=== PATIENT | male | born 1930 | race Caucasian/White ===

== ENCOUNTER 2017-10-15 22:00 | Inpatient (IN) | payer MEDICARE, BC ==
[~2017-10-15] VITALS: Ht 172.7 cm; Wt 76.8 kg
[2017-10-15] MEDS ORDERED: ALBU1.25 NEB (22:11)
[2017-10-15] MEDS ORDERED: CARV12.52 PO (22:11)
[2017-10-15 22:36] LABS: BASOPHILS # (AUTO) 0.02 x10^3/uL (0-0.1); BASOPHILS % (AUTO) 0 % (0-1); EOSINOPHILS # (AUTO) 0.25 x10^3/uL (0-0.4); EOSINOPHILS % (AUTO) 3 % (1-7); LYMPHOCYTES # (AUTO) 1.16 x10^3/uL (1-3.4); LYMPHOCYTES % (AUTO) 15 % (22-44); MD NO; MEAN CORPUSCULAR HEMOGLOBIN 30.9 pg (27.5-34.5); MEAN CORPUSCULAR HGB CONC 33.5 g/dL (33.2-36.2); MEAN CORPUSCULAR VOLUME 92.2 fL (81-97); MEAN PLATELET VOLUME 8.8 fL (7.4-10.4); MONOCYTES # (AUTO) 1.01 x10^3/uL (0.2-0.8); MONOCYTES % (AUTO) 13 % (2-9); NEUTROPHILS # (AUTO) 5.52 x10^3/uL (1.8-6.8); NEUTROPHILS % (AUTO) 69 % (42-75); PLATELET COUNT 146 x10^3/uL (130-400); RED BLOOD COUNT 3.86 x10^6/uL (4.38-5.82); RED CELL DISTRIBUTION WIDTH 14.3 % (9.4-14.8)
[2017-10-15 22:47] LABS: ALANINE AMINOTRANSFERASE 26 U/L (12-78); ALBUMIN 3.2 g/dL (3.4-5.0); ANION GAP 5 mmol/L (5-15); CALCIUM 8.2 mg/dL (8.5-10.1); CHLORIDE 111 mmol/L (98-107); CREATININE 1.42 mg/dL (0.7-1.3)
[2017-10-15 22:52] LABS: ALKALINE PHOSPHATASE 20 U/L (45-117); BILIRUBIN,TOTAL 0.3 mg/dL (0.2-1.0); TOTAL PROTEIN 6.2 g/dL (6.4-8.2); TROPONIN I < 0.015 ng/mL (0.000-0.045)
[2017-10-15] MEDS ORDERED: PRAV10TA2 PO (23:11)
[2017-10-15] MEDS ORDERED: TIOT18CA INH (23:11)
[2017-10-15] MEDS ORDERED: CYAN250013 PO (23:12)
[2017-10-15] MEDS ORDERED: ASCO10004 PO (23:12)
[2017-10-15] MEDS ORDERED: ALBUTEROL SULFATE 2.5 MG/3 ML NPPB PRN (23:45)
[2017-10-15] MEDS ORDERED: SODIUM CHLORIDE 0.9% 1,000 ML IV ONE (23:49)
[2017-10-16] MEDS ORDERED: MAALOX/HYOSCYAMINE/LIDOCAINE 45 ML BTL ONE (00:02)
[2017-10-16 00:28] VITALS: BP 149/82
[2017-10-16] MEDS ORDERED: MAALOX/HYOSCYAMINE/LIDOCAINE 45 ML BTL PO ONE (00:30)
[2017-10-16] MEDS ORDERED: SODIUM CHLORIDE 0.9% 1,000 ML IV SCH (03:40)
[2017-10-16 03:51] VITALS: BP 118/69
[2017-10-16] MEDS ORDERED: DOCUSATE 100 MG CAPSULE PO PRN (04:00)
[2017-10-16] MEDS ORDERED: ONDANSETRON 2MG/ML, 2ML IVPush PRN (04:00)
[2017-10-16] MEDS ORDERED: PROMETHAZINE 25 MG/ML, 1ML IM PRN (04:00)
[2017-10-16] MEDS: HEPARIN 5,000 UNITS/ML, 1ML SQ SCH ×3 (04:00→20:22)
[2017-10-16] MEDS ORDERED: ONDANSETRON ODT 4 MG PO PRN (04:00)
[2017-10-16] MEDS ORDERED: hydrALAzine 20 MG/ML, 1ML IVPush PRN (04:00)
[2017-10-16] MEDS ORDERED: ACETAMINOPHEN 325 MG TABLET PO PRN (04:00)
[2017-10-16] MEDS ORDERED: morphine SULFATE 10 MG/ML, 1ML IVPush PRN (04:00)
[2017-10-16] MEDS ORDERED: POLYETHYLENE GLYCOL 17 GM PACKET PO PRN (04:00)
[2017-10-16 04:37] LABS: MICROSCOPIC NOT IND
[2017-10-16 04:42] LABS: CULTURE INDICATED? NO
[2017-10-16 05:21] LABS: BASOPHILS # (AUTO) 0.04 x10^3/uL (0-0.1); BASOPHILS % (AUTO) 1 % (0-1); EOSINOPHILS # (AUTO) 0.22 x10^3/uL (0-0.4); EOSINOPHILS % (AUTO) 3 % (1-7); LYMPHOCYTES # (AUTO) 1.29 x10^3/uL (1-3.4); LYMPHOCYTES % (AUTO) 20 % (22-44); MD NO; MEAN CORPUSCULAR HEMOGLOBIN 30.5 pg (27.5-34.5); MEAN CORPUSCULAR VOLUME 92.4 fL (81-97); MONOCYTES # (AUTO) 0.71 x10^3/uL (0.2-0.8); MONOCYTES % (AUTO) 11 % (2-9); NEUTROPHILS # (AUTO) 4.38 x10^3/uL (1.8-6.8); NEUTROPHILS % (AUTO) 66 % (42-75); PLATELET COUNT 124 x10^3/uL (130-400); RED BLOOD COUNT 3.52 x10^6/uL (4.38-5.82); RED CELL DISTRIBUTION WIDTH 14.1 % (9.4-14.8)
[2017-10-16 05:27] LABS: CHLORIDE 112 mmol/L (98-107)
[2017-10-16 05:36] LABS: HEMOGLOBIN A1C 4.8 % (4.2-6.3)
[2017-10-16 05:41] LABS: ALANINE AMINOTRANSFERASE 22 U/L (12-78); ALBUMIN 2.8 g/dL (3.4-5.0); ALKALINE PHOSPHATASE 17 U/L (45-117); ANION GAP 6 mmol/L (5-15); BILIRUBIN,TOTAL 0.5 mg/dL (0.2-1.0); CALCIUM 7.9 mg/dL (8.5-10.1); CHOL/HDL RATIO 1.8; CHOLESTEROL, TOTAL 89 mg/dL (140-239); CREATININE 1.27 mg/dL (0.7-1.3); HDL CHOL % 56 % (26-37); HDL CHOLESTEROL (DIRECT) 50 mg/dL (40-60); LDL CHOLESTEROL,CALCULATED 29 mg/dL (54-169); LDL/HDL RATIO 0.6 (0.5-3.0); TOTAL PROTEIN 5.5 g/dL (6.4-8.2); TRIGLYCERIDES 50 mg/dL (50-200); TROPONIN I < 0.015 ng/mL (0.000-0.045); VLDL CHOLESTEROL 10 mg/dL (0-25)
[2017-10-16] MEDS: IPRATROPIUM 0.5 MG/2.5 ML INHA NPPB SCH ×4 (06:40→19:26)
[2017-10-16 07:05] VITALS: BP 125/72
[2017-10-16] MEDS: CYANOCOBALAMIN 1,000 MCG TABLET PO SCH (09:33)
[2017-10-16] MEDS: ASCORBIC ACID 500 MG TABLET PO SCH (09:34)
[2017-10-16 11:19] LABS: TROPONIN I < 0.015 ng/mL (0.000-0.045)
[2017-10-16 13:58] VITALS: BP 115/61
[2017-10-16 14:35] LABS: INTERNATIONAL NORMALIZED RATIO 1.1 (0.93-1.1); PROTHROMBIN TIME 11.4 Seconds (9.6-11.5)
[2017-10-16 19:19] VITALS: BP 125/70
[2017-10-16] MEDS: PRAVASTATIN 20 MG TABLET PO SCH (20:23)
[2017-10-17 00:32] VITALS: BP 127/73
[2017-10-17] MEDS: HEPARIN 5,000 UNITS/ML, 1ML SQ SCH ×3 (03:57→20:35)
[2017-10-17] MEDS: IPRATROPIUM 0.5 MG/2.5 ML INHA NPPB SCH ×4 (06:41→19:13)
[2017-10-17 06:59] VITALS: BP 146/74
[2017-10-17] MEDS: ASCORBIC ACID 500 MG TABLET PO SCH (09:03)
[2017-10-17] MEDS: CYANOCOBALAMIN 1,000 MCG TABLET PO SCH (09:04)
[2017-10-17 11:09] VITALS: BP 128/72
[2017-10-17] MEDS: LISINOPRIL 5 MG TABLET PO SCH (11:10)
[2017-10-17] MEDS ORDERED: ERGOCALCIFEROL 50,000 UNIT CAPSULE ONE (12:24)
[2017-10-17] MEDS ORDERED: ERGOCALCIFEROL 50,000 UNIT CAPSULE PO SCH (12:30)
[2017-10-17 13:43] VITALS: BP 126/76
[2017-10-17 19:02] VITALS: BP 100/59
[2017-10-17] MEDS: PRAVASTATIN 20 MG TABLET PO SCH (20:36)
[2017-10-18 01:31] VITALS: BP 100/58
[2017-10-18] MEDS: HEPARIN 5,000 UNITS/ML, 1ML SQ SCH ×3 (04:02→20:20)
[2017-10-18] MEDS: IPRATROPIUM 0.5 MG/2.5 ML INHA NPPB SCH ×4 (06:35→19:25)
[2017-10-18 07:43] VITALS: BP 105/59
[2017-10-18] MEDS: CYANOCOBALAMIN 1,000 MCG TABLET PO SCH (08:13)
[2017-10-18] MEDS: LISINOPRIL 5 MG TABLET PO SCH (08:14)
[2017-10-18] MEDS: ASCORBIC ACID 500 MG TABLET PO SCH (08:14)
[2017-10-18] MEDS ORDERED: SODIUM CHLORIDE 0.9% 1,000 ML IV SCH (11:59)
[2017-10-18] MEDS ORDERED: CEFAZOLIN PMX 1GM/50ML 50 ML IVPB ONE (12:00)
[2017-10-18 12:39] VITALS: BP 128/66
[2017-10-18] MEDS ORDERED: LIDOCAINE/PF 1%, 30ML ONE (15:13)
[2017-10-18] MEDS ORDERED: FENTANYL PF 100 MCG/2ML ONE (15:13)
[2017-10-18] MEDS ORDERED: MIDAZOLAM 1 MG/ML, 5ML ONE (15:13)
[2017-10-18] MEDS ORDERED: CEFAZOLIN 1,000 MG ONE ×2 (15:13→16:47)
[2017-10-18] MEDS ORDERED: CEFAZOLIN PMX 1GM/50ML 0 ML ONE (15:13)
[2017-10-18] MEDS ORDERED: VANCOMYCIN 500 MG ONE (15:17)
[2017-10-18] MEDS ORDERED: VANCOMYCIN PMX 1GM/200ML 200 ML ONE (15:17)
[2017-10-18] MEDS ORDERED: CEFAZOLIN PMX 1GM/50ML 50 ML ONE (16:47)
[2017-10-18 19:17] VITALS: BP 126/72
[2017-10-18] MEDS: PRAVASTATIN 20 MG TABLET PO SCH (20:19)
[2017-10-18] MEDS: SODIUM CHLORIDE FLUSH 10ML SYR IVF SCH (20:21)
[2017-10-19] MEDS: OXYcodone/APAP 5/325MG TABLET PO PRN ×2 (00:20→09:20)
[2017-10-19 00:54] VITALS: BP 142/76
[2017-10-19] MEDS: CEFAZOLIN PMX 1GM/50ML 50 ML IVPB SCH ×2 (00:58→09:09)
[2017-10-19] MEDS: HEPARIN 5,000 UNITS/ML, 1ML SQ SCH ×2 (04:10→13:00)
[2017-10-19 05:01] LABS: ANION GAP 3 mmol/L (5-15); CALCIUM 8.4 mg/dL (8.5-10.1); CHLORIDE 105 mmol/L (98-107); CREATININE 1.13 mg/dL (0.7-1.3)
[2017-10-19] MEDS: IPRATROPIUM 0.5 MG/2.5 ML INHA NPPB SCH (06:34)
[2017-10-19 07:34] LABS: BASOPHILS # (AUTO) 0.04 x10^3/uL (0-0.1); BASOPHILS % (AUTO) 1 % (0-1); EOSINOPHILS # (AUTO) 0.21 x10^3/uL (0-0.4); EOSINOPHILS % (AUTO) 4 % (1-7); LYMPHOCYTES # (AUTO) 0.86 x10^3/uL (1-3.4); LYMPHOCYTES % (AUTO) 16 % (22-44); MD NO; MEAN CORPUSCULAR HEMOGLOBIN 30.2 pg (27.5-34.5); MEAN CORPUSCULAR HGB CONC 32.6 g/dL (33.2-36.2); MEAN CORPUSCULAR VOLUME 92.5 fL (81-97); MEAN PLATELET VOLUME 10.4 fL (7.4-10.4); MONOCYTES # (AUTO) 0.49 x10^3/uL (0.2-0.8); MONOCYTES % (AUTO) 9 % (2-9); NEUTROPHILS # (AUTO) 3.66 x10^3/uL (1.8-6.8); NEUTROPHILS % (AUTO) 70 % (42-75); PLATELET COUNT 133 x10^3/uL (130-400); RED BLOOD COUNT 3.83 x10^6/uL (4.38-5.82); RED CELL DISTRIBUTION WIDTH 14.1 % (9.4-14.8)
[2017-10-19 08:29] VITALS: BP 150/70
[2017-10-19] MEDS: CYANOCOBALAMIN 1,000 MCG TABLET PO SCH (09:09)
[2017-10-19] MEDS: LISINOPRIL 5 MG TABLET PO SCH (09:09)
[2017-10-19] MEDS: ASCORBIC ACID 500 MG TABLET PO SCH (09:09)
[2017-10-19] MEDS: SODIUM CHLORIDE FLUSH 10ML SYR IVF SCH (09:10)
[2017-10-19] MEDS ORDERED: LISI5TAB7 PO (13:26)
[2017-10-19] MEDS ORDERED: ERGO500017 PO (13:26)
[2017-10-19] MEDS ORDERED: IPRATROPIUM 0.5 MG/2.5 ML INHA NPPB SCH (15:00)
[2017-10-19] MEDS ORDERED: CARVEDILOL 12.5 MG TABLET PO SCH (18:00)
== END 2017-10-19 14:35 | disposition home health service (06) | DRG 242 ==
LOC: ED 22:36 → EDIP 23:49 → 5SO 10-16 00:16 → DCLOUNGE 10-19 14:15
PROVIDERS: ADMIT Internal Medicine; ATTEND Internal Medicine
PROC: 0JH606Z Insertion of Pacemaker, Dual Chamber into Chest Subcutaneous Tissue and Fascia, Open Approach (ICD-10-PCS; principal; 2017-10-18)
PROC: 02H63JZ Insertion of Pacemaker Lead into Right Atrium, Percutaneous Approach (ICD-10-PCS; 2017-10-18)
PROC: 02HK3JZ Insertion of Pacemaker Lead into Right Ventricle, Percutaneous Approach (ICD-10-PCS; 2017-10-18)
DX: I44.1 Atrioventricular block, second degree (principal); N17.0 Acute kidney failure with tubular necrosis; E44.0 Moderate protein-calorie malnutrition; J96.10 Chronic respiratory failure, unspecified whether with hypoxia or hypercapnia; D64.9 Anemia, unspecified; E55.9 Vitamin D deficiency, unspecified; E78.5 Hyperlipidemia, unspecified; I10 Essential (primary) hypertension; I44.7 Left bundle-branch block, unspecified; J44.9 Chronic obstructive pulmonary disease, unspecified; K21.9 Gastro-esophageal reflux disease without esophagitis; K44.9 Diaphragmatic hernia without obstruction or gangrene; Z87.891 Personal history of nicotine dependence; Z79.899 Other long term (current) drug therapy; Z68.25 Body mass index [BMI] 25.0-25.9, adult; Z99.81 Dependence on supplemental oxygen
CPT/HCPCS: 33208; 36415; 71045; 80048; 80053; 80061; 81003; 82306; 82607; 83036; 83735; 84439; 84443; 84484; 85025; 85610; 93005; 93306; 94640; 99156; 99157; 99291; C1779; C1785; C1892; J0690; J1644; J2250; J3010; J3370; J3490; J7644; J7030